=== PATIENT | female | born 1935 | race Caucasian/White ===

== ENCOUNTER 2019-09-16 13:12 | Emergency (ER) | payer OTHER, SELFPAY ==
--- NOTE | ~2019-09-16 | XR_ITS ---
XR knee LT 3V 09/16/2019 13:34 INDICATION: Left knee pain PROCEDURE: 3 views left knee COMPARISON: No prior studies for comparison. FINDINGS: Fracture, dislocation or subluxation is not identified. No significant joint effusion. The soft tissues appear within normal limits. No foreign bodies are identified. IMPRESSION: 1: NO ACUTE BONE OR JOINT ABNORMALITY IDENTIFIED. Reviewed, dictated and finalized at location A.
--- NOTE | 2019-09-16 13:20 | ED.GENADULT ---
HPI - General Adult General Chief complaint: Extremity Injury, Lower <Kun Cheatham PA-C - Last Filed: 09/16/19 14:36> Stated complaint: knee pain <Kun Cheatham PA-C - Last Filed: 09/16/19 14:36> Source: patient <Kun Cheatham PA-C - Last Filed: 09/16/19 14:36> Mode of arrival: EMS <Kun Cheatham PA-C - Last Filed: 09/16/19 14:36> Limitations: no limitations <Kun Cheatham PA-C - Last Filed: 09/16/19 14:36> History of Present Illness HPI narrative: Patient is an 83-year-old female who presents to emergency department for evaluation of left knee pain was ambulating took a step and had sharp pain in the left knee and has since had difficulty with bearing weight has taken Aleve with minimal improvement patient on arrival to emergency department per EMS from home resting comfortably in the room in no distress denies similar occurrence in the past radicular symptoms or paresthesias <Kun Cheatham PA-C - Last Filed: 09/16/19 14:36> Related Data Allergies/adverse reactions: Allergies Allergy/AdvReac Type Severity Reaction Status Date / Time No Known Allergies Allergy Unknown Verified 09/16/19 13:17 <Kun Cheatham PA-C - Last Filed: 09/16/19 14:36> Review of Systems Review of Systems: All systems reviewed & are unremarkable except as noted in HPI and below <Kun Cheatham PA-C - Last Filed: 09/16/19 14:36> [facility] Past Medical History Medical History: Medical History Essential (primary) hypertension 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) Hypothyroidism, unspecified Major depression, recurrent, chronic Major psychotic depression, single episode Mixed hyperlipidemia Polyosteoarthritis, unspecified Primary generalized (osteo)arthritis Type 2 diabetes mellitus without complications Unspecified diastolic (congestive) heart failure Vitamin D deficiency, unspecified <Kun Cheatham PA-C - Last Filed: 09/16/19 14:36> Surgical History Surgical History: Surgical History History of cholecystectomy History of hysterectomy <Kun Cheatham PA-C - Last Filed: 09/16/19 14:36> Family History Family History: Family History (Updated 07/21/16 @ 13:05 by DOCTOR UNKNOWN) Father Diabetes mellitus Hypertension Family history of malignant neoplasm of urinary bladder Mother Hypertension Family history of elevated blood lipids Other Carcinoma of colon Family history of coronary artery disease Family history of malignant neoplasm of male breast <Kun Cheatham PA-C - Last Filed: 09/16/19 14:36> Social History Social History: Social History Smoking status: Former smoker Second hand tobacco smoke exposure: No Alcohol intake: never Gender identity (if verbalized by the patient): Female <Kun Cheatham PA-C - Last Filed: 09/16/19 14:36> Exam Narrative: Exam Narrative: GENERAL: Well-appearing, well-nourished, and in no acute distress. HEAD: Normocephalic, atraumatic. EYES: PERRLA and EOMI. ENT: Nares clear, no rhinorrhea or epistaxis. Mucous membranes moist. EXTREMITIES: Tenderness of the left knee with no deformity noted SKIN: Warm, dry, no rash. NEURO: No focal deficits. Alert and oriented x3. Cranial nerves II through XII grossly intact PSYCH: Normal mood and affect. <Kun Cheatham PA-C - Last Filed: 09/16/19 14:36> Course Course Emergency Course: Patient in the room in no distress aware of case findings treatment plan and diagnosis <Kun Cheatham PA-C - Last Filed: 09/16/19 14:36> Vital Signs Vital signs: Vital Signs Temperature 36.6 C 09/16/19 13:25 Pulse Rate 76 09/16/19 13:25 Respiratory Rate 20 09/16/19 13:25 Blood Pressure 137/81 09/16/19 13:25 Pulse Oximetry 100 09/16/19
[2019-09-16 13:25] VITALS: BP 137/81; PULSE 76; RESP 20; TEMP 36.6; O2SAT 100
[2019-09-16] MEDS: ACETAMINOPHEN 500 MG TABLET 1000 MG PO (13:25)
[2019-09-16 13:59] LABS: Add Urine Microscopic? YES; Appearance Urine Cloudy (Clear); Bacteria Urine Trace /hpf; Bilirubin Urine Negative (Negative); Blood Urine Negative (Negative); Color Urine Straw (Yellow); Glucose Urine UA Negative (Negative); Ketones Urine Trace mg/dL (Negative); Leukocyte Esterase Ur 1+ LEU/UL (Negative); Mucus Urine Rare /lpf; Nitrate Urine Negative (Negative); Protein Urine Negative (Negative); RBC Urine 0-2 /hpf (0-2); Specific Grav Ur 1.006 (1.001-1.035); Squamous Epithelial Cell Urine Rare /hpf (Few); Transitional Epi Cells Urine Rare /hpf (None Seen); Urobilinogen Urine Negative mg/dL (<2.0); WBC Urine 0-3 /hpf
[2019-09-16 14:18] VITALS: TEMP 36.6
== END 2019-09-16 15:29 | disposition home or self-care (01) ==
PROVIDERS: Emergency Medicine Emergency Medical Services; Emergency Provider Emergency Medicine; PCP Internal Medicine
DX: S89.92XA Unspecified injury of left lower leg, initial encounter (principal); I11.0 Hypertensive heart disease with heart failure; I50.9 Heart failure, unspecified; E03.9 Hypothyroidism, unspecified; E78.2 Mixed hyperlipidemia; M19.90 Unspecified osteoarthritis, unspecified site; E11.9 Type 2 diabetes mellitus without complications; E55.9 Vitamin D deficiency, unspecified; Z87.891 Personal history of nicotine dependence; Z79.84 Long term (current) use of oral hypoglycemic drugs; X50.9XXA Other and unspecified overexertion or strenuous movements or postures, initial encounter
CPT/HCPCS: 73562; 81001; 99283; A9270

== ENCOUNTER 2020-09-10 13:32 | Outpatient (CLI) | payer OTHER, SELFPAY ==
--- NOTE | 2020-09-10 14:30 | NEURO_ITS ---
Impression: # Complains of numbness of right hand. # Mild Carpal Tunnel Syndrome. # Subtle ulnar neuropathy across the elbow. # Normal needle/EMG exam. # Clinical correlation recommended. Nerve Conduction Studies Anti Sensory Summary Table Stim Site NR Peak (ms) P-T Amp (?V) Site1 Site2 Delta-P (ms) Dist (cm) Ulises (m/s) Right Median Anti Sensory (2-3nd Digit) Wrist 3.7 30.2 Wrist 2-3nd Digit 3.7 14.0 38 Wrist 3.8 7.2 Wrist 2-3nd Digit 3.7 14.0 38 Right Radial Anti Sensory (Base 1st Digit) Wrist 2.8 7.1 Wrist Base 1st Digit 2.8 0.0 Right Ulnar Anti Sensory (5th Digit) Wrist 2.8 37.9 Wrist 5th Digit 2.8 14.0 50 Motor Summary Table Stim Site NR Onset (ms) O-P Amp (mV) Site1 Site2 Delta-0 (ms) Dist (cm) Ulises (m/s) Right Median Motor (Abd Poll Brev) Wrist 4.0 2.6 Elbow Wrist 5.5 27.0 49 Elbow 9.5 1.6 Right Ulnar Motor (Abd Dig Minimi) Wrist 2.4 6.6 A Elbow Wrist 5.9 28.0 47 A Elbow 8.3 5.3 B Elbow Wrist 5.0 21.0 42 B Elbow 7.4 5.3 F Wave Studies NR F-Lat (ms) L-R F-Lat (ms) Right Median (Mrkrs) (Abd Poll Brev) 29.65 Right Ulnar (Mrkrs) (Abd Dig Min) 30.45 EMG Side Muscle Nerve Root Ins Act Fibs Amp Dur Recrt Comment Right 1stDorInt Ulnar C8-T1 Nml Nml Nml Nml Nml Right Ext Indicis Radial (Post Int) C7-8 Nml Nml Nml Nml Nml Right Ext Digitorum Radial (Post Int) C7-8 Nml Nml Nml Nml Nml Right BrachioRad Radial C5-6 Nml Nml Nml Nml Nml Right PronatorTeres Median C6-7 Nml Nml Nml Nml Nml Right Abd Poll Brev Median C8-T1 Nml Nml Nml Nml Nml Right Anconeus Radial C7-8 Nml Nml Nml Nml Nml Right Biceps Musculocut C5-6 Nml Nml Nml Nml Nml Right Brachialis Musculocut C5-6 Nml Nml Nml Nml Nml Right Triceps Radial C6-7-8 Nml Nml Nml Nml Nml MTDD
== END 2020-09-10 13:33 | disposition home or self-care (01) ==
PROVIDERS: PCP Internal Medicine; Visit Provider Internal Medicine
DX: G56.01 Carpal tunnel syndrome, right upper limb (principal); G56.21 Lesion of ulnar nerve, right upper limb
CPT/HCPCS: 95886; 95909

== ENCOUNTER 2021-03-16 07:35 | Outpatient (CLI) | payer OTHER, SELFPAY ==
--- NOTE | ~2021-03-16 | NM_ITS ---
EXAMINATION: NM stef stress w perfusion DATE: 03/16/2021 11:19 INDICATION: Dyspnea TECHNIQUE: Rest images were obtained following intravenous administration of 10.3 mCi Tc99m tetrofosm in (Myoview). The patient was infused intravenously with Lexiscan (Regadenoson). Then, 33 mCi Tc99m t etrofosmin (Myoview) was administered intravenously, and stress images were obtained. Data was recons tructed into short axis and horizontal and vertical long axis SPECT images. Gated SPECT images were a lso obtained. COMPARISON: None. FINDINGS: There is no definite reversible or fixed perfusion abnormality to suggest ischemia or infar ction. There is normal left ventricular chamber size, wall motion and ejection fraction. Left ventr icular ejection fraction measures 60%. IMPRESSION: 1. Normal myocardial perfusion at rest and during stress. 2. Left ventricular ejection fraction measuring 60%. Reviewed, dictated and finalized at location A. TECH
--- NOTE | 2021-03-16 07:46 | ECHO_ITS ---
Patient Info Name: Claudine Perez Age: 85 years : 1935 Gender: Female Ht: 62 in Wt: 180 lbs BSA: 1.92 m2 HR: 72 bpm BP: 162 / 88 mmHg Technical Quality: Good Exam Date: 03/16/2021 8:00 AM Exam Location: [facility] Patient Status: Outpatient Admit Date: 03/16/2021 Staff Ordering Physician: Jorge Oliva DO Coal Shoveler: Roseline Murillo RDCS Attending Provider: Jorge Oliva DO Referring Physician: jP HINES; Exam Type: CA echo doppler color flow Study Info Indications R06.00 - Dyspnea, unspecified Complete two-dimensional, color flow and Doppler transthoracic echocardiogram is performed. Summary 1. Complete two-dimensional, color flow and Doppler transthoracic echocardiogram is performed. 2. Left ventricular chamber dimension is normal. 3. Left ventricular systolic function is normal, estimated at 55-60%. 4. There is mildly increased left ventricular wall thickness. 5. The left ventricular diastolic function is grade I diastolic dysfunction. 6. E/e' 11 is mildly elevated. 7. Global longitudinal strain is abnormal at -15.6%. 8. There is mild mitral valve regurgitation. 9. There is mild tricuspid valve regurgitation. 10. No pulmonary hypertension, estimated pulmonary arterial systolic pressure is 32 mmHg. Left Ventricle E/e' 11 is mildly elevated. Global longitudinal strain is abnormal at -15.6%. Left ventricular chamber dimension is normal. Left ventricular systolic function is normal, estimated at 55-60%. There is mildly increased left ventricular wall thickness. The left ventricular diastolic function is grade I diastolic dysfunction. Right Ventricle Right ventricular chamber dimension is normal. Right ventricular systolic function is normal. Left Atria Left atrial chamber dimension is normal. Right Atria Right atrial chamber dimension is normal. Aortic Valve The aortic valve is trileaflet. There is no aortic valve stenosis. There is no aortic valve regurgitation. Pulmonic Valve There is no pulmonic regurgitation. Mitral Valve There is no mitral valve stenosis. There is mild mitral valve regurgitation. Tricuspid Valve There is mild tricuspid valve regurgitation. No pulmonary hypertension, estimated pulmonary arterial systolic pressure is 32 mmHg. Pericardium/Pleural There is no pericardial effusion. Inferior Vena Cava Normal inferior vena cava with >50% collapse upon inspiration consistent with normal right atrial pressure, 5 mmHg. Aorta The aortic root size at the sinus of Valsalva is normal. Left Ventricular Outflow Tract Name Value Normal LVOT 2D LVOT Diameter 2.0 cm LVOT Doppler LVOT Peak Gradient 4 mmHg LVOT Mean Gradient 2 mmHg LVOT VTI 22 cm LVOT VTI/AV VTI Ratio 0.9 LVOT Stroke Volume 69 ml LVOT CO 4.3 l/min LVOT CI 2.2 l/min/m2 Pulmonic Valve
--- NOTE | 2021-03-16 07:47 | EST_ITS ---
Patient Info Name: Claudine Perez Age: 85 years : 1935 Gender: Female Ht: 62 in Wt: 183 lbs BSA: 1.94 m2 HR: 63 bpm BP: 154 / 67 mmHg Heart Rhythm: Sinus Rhythm Exam Date: 03/16/2021 9:36 AM Exam Location: [facility] Stress Patient Status: Outpatient Admit Date: 03/16/2021 Staff Ordering Physician: Jorge Oliva DO Attending Provider: Jorge Oliva DO Exercise Technologist: Becak Antonio CT Exercise Physician: Jorge Oliva DO Exam Type: CA stress stef w NM Study Info Indications R06.00 - Dyspnea, unspecified A regadenoson stress test was performed. Summary 1. 1. Inconclusive lexiscan stress test for ischemic ST changes by ECG criteria due to baseline LBBB. 2. 2. Stable hemodynamics throughout the test. 3. 3. Nuclear scan to follow and will be reported separately. Please correlate with it. 4. 4. Patient informed of the above results. Protocol: Lexiscan Stress ECG Details Stage: REST Duration (min): 1 min : 52 sec HR (bpm): 64 SBP (mmHg): 154 DBP (mmHg): 67 Stage: REST Duration (min): 7 min : 13 sec HR (bpm): 62 SBP (mmHg): 154 DBP (mmHg): 67 Stage: STAGE 1 Duration (min): 1 min : 0 sec HR (bpm): 75 SBP (mmHg): 156 DBP (mmHg): 82 Stage: RECOVERY Duration (min): 1 min : 0 sec HR (bpm): 80 SBP (mmHg): 156 DBP (mmHg): 82 Stage: RECOVERY Duration (min): 2 min : 0 sec HR (bpm): 85 SBP (mmHg): 156 DBP (mmHg): 82 Stage: RECOVERY Duration (min): 3 min : 0 sec HR (bpm): 80 SBP (mmHg): 164 DBP (mmHg): 76 Stage: RECOVERY Duration (min): 3 min : 20 sec HR (bpm): 79 SBP (mmHg): 164 DBP (mmHg): 76 Rest HR: 62 bpm Peak HR: 86 bpm Rest Sys BP: 154 mmHg Peak Sys BP: 164 mmHg Max Pred HR: 135 bpm % Max Pred HR: 64 % Target HR: 115 bpm Max RPP: 14,104 bpm*mmHg Termination Reason: Completed protocol Cardiac Symptoms: Shortness of breath, Lightheadedness Total Time: 1 min : 0 sec Rest Morales BP: 67 mmHg Peak Morales BP: 76 mmHg Total Dose: 0.4 mg Resting ECG Sinus rhythm, first degree AV block, LBBB. Stress ECG No ST changes. Arrhythmias None. Report Signatures
== END 2021-03-16 07:36 | disposition home or self-care (01) ==
PROVIDERS: PCP Internal Medicine; Visit Provider Internal Medicine Cardiovascular Disease
DX: R06.00 Dyspnea, unspecified (principal); I34.0 Nonrheumatic mitral (valve) insufficiency; I36.1 Nonrheumatic tricuspid (valve) insufficiency
CPT/HCPCS: 78452; 93017; 93306; A9502; J2785